=== PATIENT | female | born 1985 | race Caucasian/White ===

== ENCOUNTER → 2016-11-16 | Outpatient (CLI) | payer BC ==
[~2016-11-16] MED LIST: PRENTAB26 PO
== END | disposition home or self-care (01) ==
LOC: C.LABSPEC 17:33
PROVIDERS: ATTEND Obstetrics & Gynecology
DX: Z34.03 Encounter for supervision of normal first pregnancy, third trimester (principal)

== ENCOUNTER 2016-12-09 17:36 | Inpatient (IN) | payer BC ==
[~2016-12-09] VITALS: Ht 177.8 cm; Wt 89.8 kg
[2016-12-09 19:06] VITALS: Ht 177.8 cm; Wt 89.8 kg
[2016-12-09] MEDS ORDERED: PRENTAB26 PO (19:11)
[2016-12-09] MEDS ORDERED: LACTATED RINGER'S 1000ML 1,000 ML IV PRN (20:00)
[2016-12-09] MEDS ORDERED: LACTATED RINGER'S 1000ML 1,000 ML IV SCH (20:00)
[2016-12-09 20:26] LABS: HEMATOCRIT 36.9 % (37-47); MEAN CELL VOLUME 88.5 fL (80-100); MEAN CORPUSCULAR HEMOGLOBIN 31.2 pg (25-34); MEAN CORPUSCULAR HGB CONC 35.2 g/dl (32-36); MEAN PLATELET VOLUME 8.9 fL (7.4-10.4); PLATELET COUNT 164 K/uL (130-400); RED BLOOD COUNT 4.17 M/uL (4.2-5.4); WHITE BLOOD COUNT 15.51 K/uL (4.8-10.8)
[2016-12-09] MEDS ORDERED: BUTORPHANOL TARTRATE 1 MG/ML VIAL IV PRN (22:15)
[2016-12-09] MEDS ORDERED: EpHEDrine SULFATE INJ 50 MG/ML AMP ONE (22:34)
[2016-12-09] MEDS ORDERED: BUPIVACAINE 0.25% 30 ML VIAL ONE (22:34)
[2016-12-09] MEDS ORDERED: FENTANYL 2MCG/ML ROPIV 1.25MG/ML 100ML BAG EPI ONE (22:34)
[2016-12-09] MEDS ORDERED: FENTANYL CITRATE INJ 50 MCG/1 ML 2 ML VIAL ONE (22:35)
[2016-12-09] MEDS ORDERED: LACTATED RINGER'S 1000ML 500 ML IV PRN (23:12)
[2016-12-09] MEDS ORDERED: NALOXONE HCL INJ 1 MG in SODIUM CHLORIDE 0.9% 1000ML 1,000 ML IV PRN (23:12)
[2016-12-09] MEDS ORDERED: ONDANSETRON INJ 2 MG/ML 2 ML VIAL IV PRN (23:15)
[2016-12-09] MEDS ORDERED: NALOXONE HCL INJ 0.4 MG/1 ML VIAL/CARP IV PRN (23:15)
[2016-12-09] MEDS ORDERED: DiphenhydrAMINE HCL 50 MG/ML VIAL IV PRN (23:15)
[2016-12-09] MEDS ORDERED: EpHEDrine SULFATE INJ 50 MG/ML AMP IV PRN (23:15)
[2016-12-09] MEDS ORDERED: NALBUPHINE HCL INJ 10 MG/ML AMP IV PRN (23:15)
[2016-12-09] MEDS ORDERED: FENTANYL 2MCG/ML ROPIV 1.25MG/ML 100ML BAG EPI PRN (23:15)
[2016-12-10] MEDS ORDERED: OXYTOCIN 30 UNITS/500ML NSS IV ONE (00:44)
[2016-12-10] MEDS ORDERED: OXYTOCIN INJ 20 UNITS in LACTATED RINGER'S 1000ML 1,000 ML IV SCH (04:25)
[2016-12-10] MEDS ORDERED: HYDROCORTISONE ACETATE 25 MG SUPP PR PRN (04:30)
[2016-12-10] MEDS ORDERED: ACETAMINOPHEN/CODEINE 300/30MG TAB PO PRN ×2 (04:30)
[2016-12-10] MEDS ORDERED: ACETAMINOPHEN 325 MG TAB PO PRN (04:30)
[2016-12-10] MEDS ORDERED: SUPERCREAM 0.870 % 15GM JAR EXT PRN (04:30)
[2016-12-10] MEDS ORDERED: LANOLIN OINT EXT PRN ×2 (04:30)
[2016-12-10] MEDS ORDERED: BENZOCAINE 20% AER SPR 82.5 GM CAN EXT PRN (04:30)
[2016-12-10] MEDS ORDERED: OXYTOCIN 30 UNITS/500ML NSS IV PRN (04:30)
--- NOTE | 2016-12-10 05:19 | DELIVERY SUMMARY ---
DATE OF OPERATION: 12/10/2016 DELIVERY SUMMARY: The patient dilated to complete complete, she delivered a viable male infant, Apgars 8 and 9 via over second degree perineal laceration. Mouth and nose bulb suctioned at the perineum. Shoulder and body delivered with ease. vigorous and crying at . Placenta delivered spontaneously intact, 3-vessel cord. Cervix and sulci intact. Laceration repaired in the usual fashion using 3-0 Vicryl. Mother and baby stable in recovery. EBL 300 mL. I attest to the content of the Intraoperative Record and any orders documented therein. Any exceptions are noted below. MTDD
--- NOTE | 2016-12-10 06:34 | Anesthesia Procedure Note ---
Anesthesia Epidural Removal Nt Date & Time Dec 10, 2016 at 06:34 Vital Signs Pain Intensity: 1.0 Notes Mental Status: alert / awake / arousable, participated in evaluation Nausea / Vomiting: adequately controlled Pain: adequately controlled Airway Patency, RR, SpO2: stable & adequate BP & HR: stable & adequate Hydration State: stable & adequate Neuraxial Anesthesia: was administered Anesthetic Complications: no major complications apparent, pt satisfied with anesthetic care Epidural: removed without complications, with tip intact
[2016-12-10] MEDS: DOCUSATE SODIUM 100 MG CAP PO SCH ×2 (08:09→20:30)
[2016-12-10] MEDS: IBUPROFEN 600 MG TAB PO PRN ×3 (10:20→21:03)
[2016-12-10 15:45] VITALS: BP 109/67; PULSE 66; TEMP 36.6
[2016-12-10 20:50] VITALS: BP 121/81; PULSE 72; TEMP 36.8
[2016-12-10 23:45] VITALS: BP 116/74; PULSE 71; TEMP 36.5; O2SAT 99
[2016-12-11 04:30] VITALS: BP 114/72; PULSE 67; TEMP 36.6; O2SAT 98
--- NOTE | 2016-12-11 06:57 | Progress Note ---
Subjective Dec 11, 2016. Subjective conversation w/ patient, physical exam Ambulation: ambulating normally Passing Gas: Yes Diet Tolerance: Regular Diet Lochia: Small Feeding Type: Breast Feeding Review of Systems Constitutional: No chills, No fever, No sweats Respiratory: No cough, No shortness of breath Cardiac: No chest pain, No claudication Objective Vital Signs Date Time Temp Pulse Resp B/P Pulse Ox O2 Delivery O2 Flow Rate FiO2 12/11/16 04:30 36.6 67 18 114/72 98 Room Air 12/10/16 23:45 99 Room Air 12/10/16 23:45 36.5 71 18 116/74 99 Room Air 12/10/16 20:50 36.8 72 18 121/81 Room Air 12/10/16 16:40 Room Air 12/10/16 15:45 36.6 66 20 109/67 Room Air Physical Exam General Appearance: WELL-APPEARING, NO APPARENT DISTRESS Respiratory/Chest: lungs clear, no accessory muscle use Cardiovascular: regular rate, rhythm, no murmur Fundus: Firm, Non-Tender, Relation to Umbilicus (2 cm below) Extremities: non-tender, no calf tenderness Assessment and Plan Post- Day#: 1 Continue Routine Care: s/p Day 1 - vitals reviewed and wnl - hgb 13.0 two days ago - blood: B+, GBS-, Rubella immune - encourage ambulation, encourage , monitor lochia - patient doing well clinically - CONTINUE ROUTINE POST CARE Resident Physician Supervision Note: I was present with Dr. Mcmanus during the history and exam. I discussed the case with the resident and agree with the findings and plan as documented in the note. Any exceptions or clarifications are listed here: Routine pp care. Documented By: Sylvie Mao
[2016-12-11 07:40] VITALS: BP 100/69; PULSE 73; TEMP 36.5; O2SAT 97
[2016-12-11] MEDS: DOCUSATE SODIUM 100 MG CAP PO SCH ×2 (08:49→19:59)
[2016-12-11] MEDS: IBUPROFEN 600 MG TAB PO PRN ×3 (08:50→16:36)
[2016-12-11] MEDS ORDERED: DIPHTHERIA/TETANUS/PERTUSSIS 0.5 ML SYR/VIAL IM. ONE (09:00)
[2016-12-11 17:00] VITALS: BP 95/57; PULSE 67; TEMP 36.6
[2016-12-12] VITALS: BP 105/65; PULSE 69; TEMP 36.8; O2SAT 100
[2016-12-12] MEDS: IBUPROFEN 600 MG TAB PO PRN ×2 (02:05→08:31)
[2016-12-12 07:22] VITALS: BP 121/82; PULSE 70; TEMP 36.6; O2SAT 98
--- NOTE | 2016-12-12 07:36 | Progress Note ---
Subjective Dec 12, 2016. Subjective conversation w/ patient, physical exam Ambulation: ambulating normally Voiding: no voiding problems Passing Gas: Yes Diet Tolerance: Regular Diet Lochia: Moderate Feeding Type: Breast Feeding Review of Systems Constitutional: No chills, No fatigue, No fever, No problem reported, No sweats , No weakness, No weight loss Breast: No breast lump, No breast pain, No change in shape, No nipple discharge , No problem reported, No see HPI Female : No abnormal vaginal bleeding, No dysuria, No hematuria, No incontinence, No problem reported, No see HPI, No urinary frequency, No vaginal discharge Objective Vital Signs Date Time Temp Pulse Resp B/P Pulse Ox O2 Delivery O2 Flow Rate FiO2 12/12/16 07:22 36.6 70 23 121/82 98 Room Air 12/12/16 00:00 Room Air 12/12/16 00:00 36.8 69 16 105/65 100 Room Air 12/11/16 17:00 Room Air 12/11/16 17:00 36.6 67 16 95/57 Room Air 12/11/16 07:40 36.5 73 16 100/69 97 Room Air 12/11/16 07:40 Room Air Physical Exam General Appearance: WELL-APPEARING, NO APPARENT DISTRESS Abdomen: non tender, soft Fundus: Firm, Non-Tender, Relation to Umbilicus (1 below U) Extremities: no calf tenderness Assessment and Plan Post- Day#: 2 Continue Routine Care: stable exam discharge to home follow up in 6 weeks.
[2016-12-12 08:19] VITALS: O2SAT 98
[2016-12-12] MEDS: DOCUSATE SODIUM 100 MG CAP PO SCH (08:28)
[2016-12-12 09:16] VITALS: BP 121/82; PULSE 70; TEMP 36.6; O2SAT 98
--- NOTE | 2016-12-12 10:56 | Discharge Instructions ---
Discharge Instructions Date of Service Dec 12, 2016. Admission Reason for Admission: Labor Check Discharge Discharge Diagnosis / Problem: Vaginal delivery Discharge Goals Goal(s): Routine recovery after delivery Activity Recommendations Activity Limitations: per Instructions/Follow-up section . Instructions / Follow-Up Instructions / Follow-Up ACTIVITY RECOMMENDATIONS: * Gradual return to full activity over the next 2-3 weeks. * No lifting - nothing heavier than baby over the next 2-3 weeks. * Do not engage in vigorous exercise, sexual activity or sports until cleared by your physician. * Do not drive or operate any motorized equipment until cleared by your physician. * You may shower/bathe daily. MEDICATIONS: For discomfort or pain, you may use Acetaminophen (Tylenol), Ibuprofen (Advil), or Naproxen (Aleve) following the package directions. For constipation you may use Colace following the package directions. BREAST CARE: If you are not breast feeding: * Wear a supportive bra 24 hours a day for one to two weeks. * Avoid stimulating your breasts and nipples as much as possible during the first few weeks after delivery. * When taking a shower, have the warm water hit your back, not breasts. * When your breasts feel full, apply ice packs. Usually three to four times a day helps ease the discomfort. * Take a mild pain medication (Tylenol / Motrin) when you are uncomfortable. If breast feeding: * Use breast milk to lubricate nipples. Lansinoh cream may be used for sore nipples. You do not need to remove cream prior to breast feeding. If using a different brand of cream, check the label for directions regarding removal of cream prior to nursing. * Wear a supportive bra. * If having problems with breasts or breast feeding, call a safety and health consultant or your health care provider. EPISIOTOMY CARE: After delivery, if you have an episiotomy (stitches), the following steps will ease discomfort and aid healing. * For the first 24 hours after delivery, place ice packs next to your episiotomy to help reduce swelling. * After the first 24 hour-period, sitz baths, either portable or in the tub, are suggested. A shower with a shower arm sprayed over the episiotomy may be comforting. * Mona care should be done after each voiding and bowel movement. Squirt warm water from a plastic bottle over the perineum (region of the body between the anus and urinary opening) and pat dry. * Use Dermoplast to ease discomfort. Shake container. [place] directly over the episiotomy. Place a Tucks on a clean sanitary pad next to your episiotomy. SPECIAL CARE INSTRUCTIONS: When you are discharged from the hospital, it is important for you to follow the instructions listed below: * During the first week at home, you should be able to care for yourself and your baby. In addition, the usual light household activities are encouraged. * Limit your activities to the way you feel. Do not try to clean the house or move furniture. Be sensible. * If you actively engage in sports and have done so up until the time of your delivery, you may resume these activities as soon as you feel able. This may take up to one month or even longer. Use good judgment. * Continue to take your vitamins for at least six weeks after the of your baby. * Your diet need not be limited unless you were on a special diet before your delivery. Breast-feeding mothers need around 2500 calories per day and at least 64-80 ounces of fluid per day (8 to 10 glasses). * You should eat foods from the four major food groups. Crash diets or fad diets are to be avoided. Eating lean meats, fresh fruits and vegetables, low-fat dairy products, high fiber foods and a regular exercise program, will help you get back to your pre- weight without putting your health at risk. * Constipation is sometimes a problem after delivery. Take a mild laxative as needed. If breast feeding, Milk of Magnesia is acceptable to use. You may use a suppository or Fleets enema if no episiotomy. * A daily shower or tub bath is suggested. Be sure to thoroughly and gently dry the perineum. * A bloody vaginal discharge will usually continue until around four weeks post . A small amount of bleeding may continue for as long as six weeks. Vaginal discharge changes from the bright red bleeding after delivery to pink then brownish and finally yellowish-pink before becoming white and disappearing. * Bleeding may increase with activity. Your first period may come in 4-8 weeks. If you are breast feeding, your period may be delayed even longer. * [place] (sex) can begin whenever both you and your partner feel comfortable and do not have any form of genital infection. It is recommended that you wait at least six weeks for internal and external healing to occur. If you have questions, please talk to your health care practitioner. A condom should be used to prevent infection and . * Foreplay, gentle intercourse and lubrication is very important the first several times to prevent pain. A water-based lubricant such as K-Y jelly or Astroglide may be used. * If you have RH negative blood and your baby is RH positive, you will receive RHOGAM by injection prior to discharge. The nurse will give you a card to keep with you that has the date and place that you received RHOGAM after delivery. * During your care, you had a Rubella screen done to check for the presence of rubella antibodies in your blood. If your test was negative, you will receive a Rubella vaccine prior to discharge. This vaccine may cause a fever, soreness at the injection site and flu-like symptoms. If these symptoms persist, notify your health care practitioner. is not advised for one month after a Rubella vaccine. * Verbalizes understanding of car seat law as reviewed with patient nursing. * Car Seat hand-out given and reviewed with patient by nursing. * Shaken baby information reviewed with patient by nursing. Call you doctor if: * Heavy bleeding (saturating several pads an hour) or passing clots the size of your fist. * A fever >101 degrees F (38.3 degrees C) on two occasions four hours apart and /or chills. * Unusual pain in the pelvic or vaginal areas. * "Baby Blues" lasting longer than two weeks. If you have any questions or concerns, call your health care practitioner at . FOLLOW UP VISIT: * Please call the office at to schedule a 6 week examination. It is important you keep this appointment. It is important for you to make arrangements for either yearly or twice yearly check-ups thereafter. Current Hospital Diet Patient's current hospital diet: Regular Diet Discharge Diet Recommended Diet: Regular Diet Pending Studies Studies pending at discharge: no Medical Emergencies . Who to Call and When: Medical Emergencies: If at any time you feel your situation is an emergency, please call 911 immediately. . Non-Emergent Contact Non-Emergency issues call your: Primary Care Provider . . "Provider Documentation" section prepared by [facility] Multani. VTE Core Measure Inpt VTE Proph given/why not?: Treatment not indicated
== END 2016-12-12 13:00 | disposition home or self-care (01) | DRG 775 ==
LOC: C.OPB 17:36 → C.LD 17:37 → C.OPB 20:02 → C.OBG 12-10 15:07 → EDSTATUS 12-11 17:34
PROVIDERS: ADMIT Obstetrics & Gynecology; ATTEND Obstetrics & Gynecology
PROC: 10E0XZZ Delivery of Products of Conception, External Approach (ICD-10-PCS; principal; 2016-12-10)
PROC: 0KQM0ZZ Repair Perineum Muscle, Open Approach (ICD-10-PCS; principal; 2016-12-10)
DX: O70.1 Second degree perineal laceration during delivery (principal); Z37.0 Single live birth; Z3A.39 39 weeks gestation of pregnancy

== ENCOUNTER → 2017-01-23 | Outpatient (CLI) | payer BC | END | disposition home or self-care (01) | LOC: C.PAPS 07:50 | PROVIDERS: ATTEND Obstetrics & Gynecology | DX: Z12.4 Encounter for screening for malignant neoplasm of cervix (principal) ==

== ENCOUNTER → 2018-01-09 | Outpatient (CLI) | payer BC | END | disposition home or self-care (01) | LOC: C.LABSPEC 11:04 | PROVIDERS: ATTEND Obstetrics & Gynecology | DX: Z34.91 Encounter for supervision of normal pregnancy, unspecified, first trimester (principal) ==

== ENCOUNTER → 2018-01-17 | Outpatient (CLI) | payer BC ==
[2018-01-17 16:52] LABS: BASO % 0.1 %; BASO ABS # 0.01 K/uL (0-0.2); EOS % 3.6 %; EOS ABS # 0.34 K/uL (0-0.5); HEMOGLOBIN 14.2 g/dL (12.0-16.0); IG# 0.02 K/uL (0.00-0.02); LYMPH % 22.3 %; LYMPH ABS # 2.08 K/uL (1.2-3.4); MEAN CELL VOLUME 86.8 fL (80-100); MEAN CORPUSCULAR HEMOGLOBIN 30.8 pg (25-34); MEAN CORPUSCULAR HGB CONC 35.5 g/dl (32-36); MEAN PLATELET VOLUME 8.7 fL (7.4-10.4); MONO % 7.7 %; MONO ABS # 0.72 K/uL (0.11-0.59); NEUT % 66.1 %; NEUT ABS # 6.16 K/uL (1.4-6.5); PLATELET COUNT 230 K/uL (130-400); RED CELL DISTRIBUTION WIDTH SD 41.5 fL (36.4-46.3); WHITE BLOOD COUNT 9.33 K/uL (4.8-10.8)
== END | disposition home or self-care (01) ==
LOC: C.LAB1850 15:23
PROVIDERS: ATTEND Obstetrics & Gynecology
DX: Z34.91 Encounter for supervision of normal pregnancy, unspecified, first trimester (principal)

== ENCOUNTER → 2018-03-27 | Outpatient (CLI) | payer BC ==
[~2018-03-27] MED LIST changes: +ALLERGY SHOT SQ; +CETI10TA84 PO
== END | disposition home or self-care (01) ==
LOC: C.LABPBG 08:30
PROVIDERS: ATTEND Obstetrics & Gynecology
DX: O03.9 Complete or unspecified spontaneous abortion without complication (principal)

== ENCOUNTER → 2018-04-02 | Outpatient (CLI) | payer BC | END | disposition home or self-care (01) | LOC: C.LABPBG 08:58 | PROVIDERS: ATTEND Obstetrics & Gynecology | DX: O03.9 Complete or unspecified spontaneous abortion without complication (principal) ==

== ENCOUNTER 2019-01-24 03:56 | Inpatient (IN) ==
[2019-01-24] MEDS ORDERED: HYDROCORTISONE ACETATE 25 MG SUPP PR PRN (04:36)
[2019-01-24] MEDS ORDERED: BISACODYL 10 MG SUPP PR PRN (04:36)
[2019-01-24] MEDS ORDERED: SUPERCREAM 0.870% 15 GM JAR EXT PRN (04:36)
[2019-01-24] MEDS ORDERED: ACETAMINOPHEN 325 MG TAB PO PRN (04:36)
[2019-01-24] MEDS ORDERED: BENZOCAINE 20% AER SPR 82.5 GM CAN EXT PRN (04:36)
[2019-01-24] MEDS ORDERED: DIPHTHERIA/TETANUS/PERTUSSIS 0.5 ML SYR/VIAL IM ONE (04:36)
[2019-01-24] MEDS ORDERED: OXYTOCIN 10 UNITS/ML VIAL IM ONE (04:36)
[2019-01-24] MEDS ORDERED: OXYTOCIN 30 UNITS/500 ML BAG IV PRN (04:36)
[2019-01-24 04:54] LABS: Hematocrit (blood only) 38.1 % (37-47); Hemoglobin 13.5 g/dL (12.0-16.0); Mean Corpuscular Volume 90.7 fL (80-100); Mean Platelet Volume 8.9 fL (7.4-10.4); Platelet Count 114 K/uL (130-400); RDW Coefficient of Variation 13.1 % (11.5-14.5); RDW Standard Deviation 43.1 fL (36.4-46.3); White Blood Count 12.79 K/uL (4.8-10.8)
[2019-01-24 04:55] LABS: Mean Corpuscular Hgb Conc 35.4 g/dL (32-36)
[2019-01-24] MEDS: IBUPROFEN 600 MG TAB PO PRN ×2 (06:45→17:42)
[2019-01-24] MEDS: PRENATAL VITAMIN 1 TAB PO SCH (08:43)
[2019-01-24] MEDS: DOCUSATE SODIUM 100 MG CAP PO SCH ×2 (08:43→21:06)
--- NOTE | 2019-01-25 07:24 | Obstetrical Progress Note ---
Date of Service January 25, 2019 Assessment & Plan (1) Status post vaginal delivery: Patient is a 33 year old PPD 1 s/p -Vital signs WNL bp 114/69 T36.6, -Hemoglobin was 13.5 on admission. no si/sx of anemia. -Pt is doing clinically well -Continue to encourage ambulation as tolerated, Monitor and control pain with motrin prn, Continue diet as tolerated. -Continue to support and encourage breast feeding -Counseled patient on discharge instructions including Vaginal bleeding, fevers, followup, lifting restrictions, breast feeding, vitamins, and nothing in the vagina for 6 weeks. Pt was agreeable -Plan for d/c today Supervising Physician Co-Signing Physician Notes Resident Physician Supervision Note: I interviewed and examined the patient. Discussed with Dr. Tran and agree with findings and plan as documented in the note. Any exceptions or clarifications are listed here: [None] Documented By: Irene Brooke MD, FACOG Subjective Patient sitting up in bed wiht baby in her arms and dad sitting on the chair across the room. Patient is tolerating her diet, ambulating, passing gas and voiding, still no bm. Reports moderate lochia. Denies H/A, chest pain, palpitations and uti syx. Answered all questions, no concerns at present, pain is well controlled, requesting d/c today Physical Exam Physical Exam: Constitutional: WD/WN, vitals as above no acute distress Eyes: normal visual nagel by confrontation Neck: normal visual inspection Respiratory: normal respiratory effort, lungs clear to auscultation Cardiovascular: RRR, no murmur, no edema Heart Sounds: normal S1 and normal S2 Extremities: no calf tenderness Gastrointestinal (Abdomen): Uterus firm and below the umbilicus Results & Data Vital Signs (Past 12 Hours) Vital Signs Temp Pulse Resp BP 01/25/19 00:20 36.6 C 73 18 114/69 01/24/19 21:00 37.0 C 72 18 118/72 Medications Administered Current Inpatient Medications Acetaminophen (Tylenol) 650 mg PO Q6H PRN PRN Reason: Pain/JENSEN/Fever Stop: 02/23/19 04:35 Benzocaine (Dermoplast Pain Relieving [place]) 1 appln EXT PRN PRN PRN Reason: Perineal Discomfort Stop: 02/23/19 04:35 Last Admin: 01/24/19 08:44 Dose: 82.5 appln Documented by: Bisacodyl (Dulcolax) 10 mg MD DAILY PRN PRN Reason: No BM on 2nd post- day Stop: 02/23/19 04:35 Bisacodyl (Dulcolax) 5 mg PO 1999 [facility] Stop: 01/25/19 20:01 Cocaine HCl (Supercream 0.870%) 1 gm EXT BID PRN PRN Reason: Hemorrhoidal Inflammation Stop: 02/07/19 04:35 Docusate Sodium (Colace) 100 mg PO BID [facility] Stop: 02/23/19 08:59 Last Admin: 01/24/19 21:06 Dose: 100 mg Documented by: Hydrocortisone (Anusol Hc) 25 mg MD BID PRN PRN Reason: Hemorrhoidal Inflammation Stop: 02/23/19 04:35 Oxytocin (Pitocin) 30 units in 500 mls @ 333.333 mls/hr IV .Q1H30M PRN; Protocol PRN Reason: Bleeding Control Stop: 02/23/19 04:35 Ibuprofen (Motrin) 600 mg PO Q4H PRN PRN Reason: Pain/JENSEN/Cramping/Fever Stop: 02/23/19 04:35 Last Admin: 01/24/19 17:42 Dose: 600 mg Documented by: Caioat Multivit/Fisher/Iron/Folic Ac ( Vitamin) 1 tab PO QAM [facility] Stop: 02/23/19 08:59 Last Admin: 01/24/19 08:43 Dose: 1 tab Documented by: Resident Activity Tracking Resident Involvement: Resident Care Provided Care Provided: Adult Hospital Medicine
[2019-01-25] MEDS: PRENATAL VITAMIN 1 TAB PO SCH (08:36)
[2019-01-25] MEDS: IBUPROFEN 600 MG TAB PO PRN (08:36)
[2019-01-25] MEDS: DOCUSATE SODIUM 100 MG CAP PO SCH (08:36)
[2019-01-25] MEDS ORDERED: BISACODYL 5 MG TABEC PO SCH (20:00)
--- NOTE | 2019-01-30 12:45 | Delivery Summary ---
DATE OF OPERATION: 01/24/2019 PROCEDURE: Normal spontaneous vaginal delivery, the second-degree perineal laceration repair. SURGEON: Vasyl Evans MD PREOPERATIVE DIAGNOSES: 1. Single intrauterine at over 40 weeks' gestational age. 2. Active labor. POSTOPERATIVE DIAGNOSES: 1. Single intrauterine at over 40 weeks' gestational age. 2. Active labor. 3. Delivered. ESTIMATED BLOOD LOSS: 200 mL. DRAINS: None. FLUIDS: Continuous lactated ringer. URINE OUTPUT: Not measured. COMPLICATIONS: None. FINDINGS: Viable with weight pending, Apgars of 8 and 9 at 1 and 5 minutes respectively. INDICATIONS: Migdalia is a 33-year-old G3, P1-0-1-1, who presented in active phase of labor at term. At initial evaluation, the patient was found to be 10 cm dilated, 100% effaced, +2 station. The patient was noted to have spontaneous rupture of membranes approximately 20 minutes to prior to presentation. Upon initial evaluation, she was feeling the urge to the strong need to push. DESCRIPTION OF PROCEDURE: The patient progressed to 10 cm dilated, 100% effaced, +2-3 station, and then upon arrival to and D, was noted to have the strong urge to push. The patient pushed over approximately 3 contractions to achieve delivery. The head of the delivered in ZULAY position and rest into right transverse. No nuchal cord was noted. Body and shoulders quickly followed. was noted to be vigorous soon after delivery and a 1-minute delayed cord clamping was initiated. The cord was then double clamped and cut. Cord blood was obtained. Attention was then turned to delivery of the placenta which was delivered intact with 3-vessel cord with gentle cord traction. Inspection of the perineum, vagina, and cervix noted a second-degree perineal laceration which was repaired with 3-0 Vicryl in continuous crown stitch. Needle, sponge and instrument counts were correct at the completion of the case. I attest to the content of the Intraoperative Record and any orders documented therein. Any exception s are noted below.
== END 2019-01-25 13:15 | disposition home or self-care (01) | DRG 807 ==
LOC: OPB 03:56 → 4S1 03:58 → 4S2 07:04

== ENCOUNTER 2021-03-18 07:31 | Inpatient (IN) ==
[2021-03-18] MEDS ORDERED: OXYTOCIN 30 UNITS/500 ML BAG IV PRN ×3 (07:35→15:08)
[2021-03-18 08:03] LABS: Hematocrit (blood only) 34.6 % (37-47); Hemoglobin 11.9 g/dL (12.0-16.0); Mean Corpuscular Hgb Conc 34.4 g/dL (32-36); Mean Corpuscular Volume 90.1 fL (80-100); Mean Platelet Volume 8.5 fL (7.4-10.4); Platelet Count 133 K/uL (130-400); RDW Coefficient of Variation 13.7 % (11.5-14.5); RDW Standard Deviation 44.5 fL (36.4-46.3); Red Blood Count 3.84 M/uL (4.2-5.4); White Blood Count 8.17 K/uL (4.8-10.8)
--- NOTE | 2021-03-18 08:39 | History & Physical Report ---
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 Hx: G1 2017 at 39 wks G2 SAB G3 2019 at 38 wks G4 current Menarche 14, q28-30d cycles Denies hx STIs Last pap 08/2020 neg cytology Allergies Allergy/AdvReac Type Severity Reaction Status Date / Time No Known Drug Allergies Allergy Unknown Unknown Verified 03/18/21 07:43 Home Medications Medication Instructions Recorded Confirmed Type Vitamin 1 tab PO DAILY 01/24/19 03/18/21 History coenzyme Q10 75 mg capsule 300 mg PO DAILY cap 10/22/20 03/18/21 History riboflavin (vitamin B2) 400 mg 400 mg PO DAILY 10/22/20 03/18/21 History tablet Patient History Medical History Anxiety and depression no meds History of chicken pox No significant past medical history Seasonal allergies Surgical History Hx of melanoma excision No significant past surgical history Family History Other Diabetes Heart disease Hypertension Hyperthyroidism Hypothyroidism Denies family history of Ovarian cancer Breast cancer Colorectal cancer Social History Smoking Status: Never smoker Second Hand Exposure: No; Hx Alcohol Use: No Hx Substance Use: No Preferred Language: Belarusian Data Keyer Required: No Beliefs That Will Affect Care: None marital status: marital status details: Frederic Quiels (40) [phone] Current Living Situation: Spouse and Family Current Living Situation Comment: lives with spouse, 2 children, dog current occupational status: employed current occupation: consulting [employer] Feels Safe at Home: Yes Safety Concerns: Feels Safe At This Time Assistive Devices: Contacts Physical Exam Constitutional: WD/WN, vitals as above Respiratory: normal respiratory effort; no respiratory distress and no labored breathing Genitourinary: OB Exam Abdomen: + vertex and + estimated weight (7-8lb) Manual OB Exam: + cervical dilation (3-4), + cervical effacement 50% and + station -2 OB Exam Monitor Tracing: + external FHT monitor used, + external uterine monitor used (irritability) and + category I (145/mod/+accel/-decel) Results & Data ([facility]) Vital Signs (Past 12 Hours) Vital Signs Temp Pulse Resp BP 03/18/21 07:41 98.1 F 18 03/18/21 07:39 86 120/75 Laboratory Results OB Labs: Blood Type B Positive 08/25/20 Antibody Screen NEGATIVE 08/25/20 Hemoglobin 12.1 g/dL (12.0-16.0) 01/06/21 Hematocrit 34.7 % (37-47) L 01/06/21 Mean Corpuscular Volume 88.5 fL (80-100) 08/25/20 Platelet Count 211 K/uL (130-400) 08/25/20 Rubella IgG Antibody Immune (Immune) 08/25/20 Rapid Plasma Reagin Nonreactive (Nonreactive) 08/25/20 Hepatitis B Surface Antigen Neg (Neg) 08/25/20 HIV (1&2) Ab and P24 Ag, 4th Gener Prelim Pos (Neg) A 08/25/20 Glucose 1 Hour 50 gm Load 156 mg/dl (70-130) H 01/06/21 Maternal Serum Alpha Fetoprotein 31.8 NG/ML 08/22/18 OB Optional Labs: Chlamydia trachomatis RNA NOT DETECTED (NOT DETECTED) 08/25/20 Neisseria gonorrhoeae RNA NOT DETECTED (NOT DETECTED) 08/25/20 Thyroid Stimulating Hormone (TSH) 1.330 uIu/ml (0.300-4.500) 09/23/20 Alpha Fetoprotein Triple Screen SEE NOTE 08/22/18 Labs Reviewed: cfdna low risk declines cf/sma declines afp GBS neg HIV confirmatory test was neg Diagnostic Findings Anterior plac Coding Level of Care Code None Diagnoses 39 weeks gestation of Z3A.39
[2021-03-18] MEDS: LACTATED RINGER'S 1,000 ML IV PRN ×2 (09:29→12:31)
[2021-03-18] MEDS ORDERED: ePHEDrine sulfate 50 MG/ML AMP IV PRN (11:37)
[2021-03-18] MEDS ORDERED: NALOXONE HCL 0.4 MG/1 ML VIAL/CARP IV PRN (11:37)
[2021-03-18] MEDS ORDERED: fentaNYL 2MCG/ML ROPIVACAINE 1.25MG/ML 100 ML BAG EPI PRN (11:37)
[2021-03-18] MEDS ORDERED: ONDANSETRON INJ 2 MG/ML 2 ML VIAL IV PRN (11:37)
[2021-03-18] MEDS ORDERED: diphenhydrAMINE 50 MG/ML VIAL IV PRN (11:37)
[2021-03-18] MEDS ORDERED: NALOXONE HCL 1 MG in SODIUM CHLORIDE 0.9% 1000ML 1,000 ML IV PRN (11:37)
[2021-03-18] MEDS ORDERED: NALBUPHINE HCL INJ 10 MG/ML AMP IV PRN (11:37)
[2021-03-18] MEDS ORDERED: SODIUM CHLORIDE 0.9% INJ 10 ML VIAL ONE (11:45)
[2021-03-18] MEDS ORDERED: ePHEDrine sulfate 50 MG/ML AMP ONE (11:45)
[2021-03-18] MEDS ORDERED: fentaNYL 2MCG/ML ROPIVACAINE 1.25MG/ML 100 ML BAG EPI ONE (11:46)
[2021-03-18] MEDS ORDERED: fentaNYL citrate 100 MCG/2 ML VIAL ONE (11:46)
[2021-03-18] MEDS ORDERED: BUPIVACAINE 0.25% 30 ML VIAL ONE (11:46)
--- NOTE | 2021-03-18 11:55 | Anesthesiology Consultation ---
Date of Service March 18, 2021 Assessment & Plan (1) Encounter for pre-operative examination: Chart Review Chart Review: Patient NOT seen in Pre Admission Testing and Acceptable Risk for Labor Epidural Consults Requested none History Height/Weight Height: 5 ft 10 in Weight: 91.626 kg Allergies Allergy/AdvReac Type Severity Reaction Status Date / Time No Known Drug Allergies Allergy Unknown Unknown Verified 03/18/21 07:43 Medications Home Medications Medication Instructions Recorded Confirmed Last Taken Vitamin 1 tab PO DAILY 01/24/19 03/18/21 03/17/21 08:00 coenzyme Q10 75 mg capsule 300 mg PO DAILY cap 10/22/20 03/18/21 03/17/21 08:00 riboflavin (vitamin B2) 400 mg 400 mg PO DAILY 10/22/20 03/18/21 03/17/21 08:00 tablet Active Medications Generic Name Dose Route Start Last Admin Trade Name Freq PRN Reason Stop Dose Admin Lactated Ringer's 1,000 mls @ 125 mls/hr 03/18/21 07:35 03/18/21 11:40 Lr IV 03/20/21 07:34 999 mls/hr .Q8H PRN Infusion L&D Protocol Protocol Oxytocin 30 units in 500 mls @ 6 mls/hr 03/18/21 08:11 03/18/21 10:39 Pitocin IV 03/20/21 08:10 0.36 units/hr .Q24H PRN 6 mls/hr Labor Induction/Augmentation Titration Protocol 0.36 UNITS/HR Past Medical History Medical History Anxiety and depression no meds History of chicken pox No significant past medical history Seasonal allergies Exercise / Class Metabolic Activity II 4-5 Yardwork/Stairs/Walk up hill Past Family History Family History Other Diabetes Heart disease Hypertension Hyperthyroidism Hypothyroidism Denies family history of Ovarian cancer Breast cancer Colorectal cancer Past Surgical History Surgical History Hx of melanoma excision No significant past surgical history Past Anesthesia History No Hx of Anesthesia Complications and No Family Hx of Anesthesia Complications History of PONV No Hx of PONV and No Hx of Motion Sickness Social History Smoking Status: Never smoker Do You Dip or Chew Tobacco: No Hx Alcohol Use: No Hx Substance Use: No substance use type: does not use Physical Exam Vital Signs Last Vital Signs Temp 36.7 C 03/18/21 07:41 Pulse 91 H 03/18/21 12:16 Resp 18 03/18/21 11:15 BP 129/77 03/18/21 12:16 Pulse Ox 99 03/18/21 12:16 Testing Laboratory Results 03/18/21 07:52
--- NOTE | 2021-03-18 12:00 | Labor Progress Brief Note ---
Date of Service March 18, 2021 Subjective Getting uncomfortable w/ ctx Assessment & Plan (1) 39 weeks gestation of : 35 y/o at 39 wga presents for eIOL due to hx precipitous delivery VSS Fetus cat 1 Labor - pit at 8, will get epidural and arom when comfortable GBS neg Epidural - will contact anesthesia Admission and Anticipated Discharge Date Admission Date: March 18, 2021 Physical Exam Genitourinary: Manual OB Exam: + cervical dilation 4 cm, + cervical effacement 50% and + station -2 OB Exam Monitor Tracing: + external FHT monitor used, + external uterine monitor used (q2-5) and + category I (135/mod/+accel/-decel) Results & Data ([facility]) Vital Signs (Past 12 Hours) Vital Signs Temp Pulse Resp BP Pulse Ox 03/18/21 11:56 81 100 03/18/21 11:53 83 157/72 H 03/18/21 11:15 18 03/18/21 10:31 72 121/74 03/18/21 09:30 84 134/79 03/18/21 07:41 98.1 F 18 03/18/21 07:39 86 120/75 Coding Level of Care Code None Diagnoses 39 weeks gestation of Z3A.39
--- NOTE | 2021-03-18 13:08 | Labor Progress Brief Note ---
Date of Service March 18, 2021 Subjective Comfortable w/ epidural Assessment & Plan (1) 39 weeks gestation of : 35 y/o at 39 wga presents for eIOL due to hx precipitous delivery VSS Fetus cat 1 Labor - pit at 8, s/p arom. Continue induction GBS neg Epidural in place Admission and Anticipated Discharge Date Admission Date: March 18, 2021 Physical Exam Genitourinary: Manual OB Exam: + cervical dilation 5 cm, + cervical effacement 70%, + station -2 and + amniotic fluid (AROM) clear OB Exam Monitor Tracing: + external FHT monitor used, + external uterine monitor used (q3-4) and + category I (130/mod/+accel/-decel) Results & Data ([facility]) Vital Signs (Past 12 Hours) Vital Signs Temp Pulse Resp BP Pulse Ox 03/18/21 13:06 76 97 03/18/21 13:05 76 123/69 03/18/21 13:01 98.6 F 87 18 98 03/18/21 12:56 75 97 03/18/21 12:52 68 111/58 L 03/18/21 12:51 74 95 03/18/21 12:46 76 98 03/18/21 12:45 18 03/18/21 12:41 68 97 03/18/21 12:36 79 97 03/18/21 12:34 80 115/64 03/18/21 12:31 81 115/68 97 03/18/21 12:30 82 126/64 03/18/21 12:26 90 96 03/18/21 12:25 90 129/75 03/18/21 12:22 86 124/72 03/18/21 12:21 88 98 03/18/21 12:19 91 H 125/75 03/18/21 12:16 91 H 129/77 99 03/18/21 12:11 86 95 03/18/21 12:08 99 H 86 L 03/18/21 12:06 90 100 03/18/21 12:01 82 100 03/18/21 11:56 81 100 03/18/21 11:53 83 157/72 H 03/18/21 11:45 18 03/18/21 11:15 18 03/18/21 10:31 72 121/74 03/18/21 09:30 84 134/79 03/18/21 07:41 98.1 F 18 03/18/21 07:39 86 120/75 Coding Level of Care Code None Diagnoses 39 weeks gestation of Z3A.39
--- NOTE | 2021-03-18 14:55 | Delivery Summary ---
Vaginal Delivery Summary Date of Service March 18, 2021 PREOPERATIVE DIAGNOSIS: 1. Single intrauterine at 39 weeks gestation 2. History of precipitous delivery 3. Advanced maternal age 4. Elective induction of labor POSTOPERATIVE DIAGNOSIS: 1. Single intrauterine at 39 weeks gestation 2. History of precipitous delivery 3. Advanced maternal age 4. Elective induction of labor 5. Delivered PROCEDURE: 1. Normal spontaneous vaginal delivery. SURGEON: Valentina Calderon MD ANESTHESIA: Epidural. ESTIMATED BLOOD LOSS: 300 mL FLUIDS: Continuous LR. URINE OUTPUT: None. COMPLICATIONS: None. CONDITION: Stable. INDICATIONS: 35 y/o at 39 wga presents for elective induction of labor due to history of precipitous delivery. She was found to be 3-4 cm on arrival and started on oxytocin. She received an epidural for pain control and subsequently underwent artificial rupture of membranes. Approximately 1 hour later, she was found to be complete and desired to push. FINDINGS: A viable male with Apgars of 8 and 10 at 1 and 5 minutes respectively. SPECIMEN: Cord blood, placenta OPERATIVE REPORT: The patient progressed to 10 cm, 100% effaced and +2 station, pushed over intact perineum with anesthesia to deliver a viable male infant, Apgars as above. Head of delivered in ROGER position. Loose nuchal cord was present and delivered through. Body and shoulders were delivered without difficulty. was delivered to maternal abdomen and nursing staff. Delayed cord clamping was performed for 60 seconds. Cord was clamped and cut. Cord blood was obtained. Placenta delivered spontaneously intact with 3-vessel cord. IV oxytocin and fundal massage were given for excellent hemostasis. Vagina, cervix, perineum, and placenta were inspected. A second degree laceration was noted and repaired in the usual fashion using 3-[address]-1. Sponge and needle counts correct x2. No sponges were left behind. Mother and stable in immediate period. Vaginal Delivery Summary and 2nd Degree LAC [facility] Vaginal Delivery Charge Vaginal Delivery Codes: 86543 global code for the antepartum, delivery, and post- Delivery Type Details: and 2nd Degree LAC
--- NOTE | 2021-03-18 14:58 | Anesthesia Procedure Note ---
Date of Service March 18, 2021 Anesthesia Post Epidural Note Vital Signs Vital Signs: Temp Pulse Resp BP Pulse Ox 37.0 C 81 18 121/65 96 03/18/21 13:01 03/18/21 14:50 03/18/21 13:45 03/18/21 14:50 03/18/21 14:16 Pain Intensity Abdomen: Pain Intensity: 1 Notes Mental Status: alert / awake / arousable Pain: adequately controlled Airway Patency, RR, SpO2: stable & adequate BP & HR: stable & adequate Hydration State: stable & adequate Neuraxial Anesthesia: sensory block is resolving Anesthetic Complications: no major complications apparent Epidural: Removed without complications and With tip intact
[2021-03-18] MEDS ORDERED: DIPHTHERIA/TETANUS/PERTUSSIS 0.5 ML SYR/VIAL IM ONE (15:08)
[2021-03-18] MEDS ORDERED: SUPERCREAM 0.870% 15 GM JAR EXT PRN (15:08)
[2021-03-18] MEDS ORDERED: bisacodyL 10 MG SUPP PR PRN (15:08)
[2021-03-18] MEDS ORDERED: ACETAMINOPHEN 325 MG TAB PO PRN (15:08)
[2021-03-18] MEDS ORDERED: BENZOCAINE 20% AER SPR 82.5 GM CAN EXT PRN (15:08)
[2021-03-18] MEDS ORDERED: HYDROCORTISONE ACETATE 25 MG SUPP PR PRN (15:08)
[2021-03-18] MEDS: DOCUSATE SODIUM 100 MG CAP PO SCH (20:45)
[2021-03-19] MEDS: IBUPROFEN 600 MG TAB PO PRN ×2 (00:25→08:22)
[2021-03-19 06:13] LABS: Hemoglobin 11.1 g/dL (12.0-16.0); Mean Corpuscular Hemoglobin 30.9 pg (25-34); Mean Corpuscular Hgb Conc 33.6 g/dL (32-36); Mean Corpuscular Volume 91.9 fL (80-100); Mean Platelet Volume 8.8 fL (7.4-10.4); Platelet Count 124 K/uL (130-400); RDW Coefficient of Variation 13.5 % (11.5-14.5); RDW Standard Deviation 45.1 fL (36.4-46.3); Red Blood Count 3.59 M/uL (4.2-5.4); White Blood Count 8.85 K/uL (4.8-10.8)
--- NOTE | 2021-03-19 07:15 | Obstetrical Progress Note ---
Date of Service March 19, 2021 Assessment & Plan (1) Status post vaginal delivery: 35 yo PP1 from , doing well -Meeting all pp milestones -B+/rubella immune/ -f/u 6 weeks for appt. Desires d/c home today if cleared by peds as well, stable for d/c home today from OB standpoint Subjective Ambulation: ambulating normally Voiding: no voiding problems Passing Gas:: Yes Diet Tolerance:: regular diet Lochia:: Small Feeding Type:: breast feeding Pain well managed with medication Review of Systems Denies fevers, chills, n/v, JENSEN, CP, SOB Physical Exam Constitutional WD/WN, vitals as above no acute distress Respiratory normal respiratory effort, lungs clear to auscultation Cardiovascular RRR, no murmur, no edema Gastrointestinal (Abdomen) Percussion/Palpation: abdomen soft; abdomen nontender fundus firm at umbilicus and NT Musculoskeletal BLE symmetric, nonerythematous, nontender Results & Data ([facility]) Vital Signs (Past 12 Hours) Vital Signs Temp Pulse Resp BP Pulse Ox 03/19/21 06:00 98.6 F 60 18 127/70 03/19/21 00:20 98.8 F 60 18 128/78 03/18/21 19:50 98.1 F 60 18 112/70 100
[2021-03-19] MEDS ORDERED: PRENATAL VITAMIN 1 TAB PO SCH (08:00)
[2021-03-19] MEDS: DOCUSATE SODIUM 100 MG CAP PO SCH (08:22)
[2021-03-19] MEDS ORDERED: bisacodyL 5 MG TABEC PO SCH (20:00)
== END 2021-03-19 17:00 | disposition home or self-care (01) | DRG 807 ==
LOC: 4S1 07:31 → 4S2 17:40